=== PATIENT | female | born 1950 | race Caucasian/White ===

== ENCOUNTER → 2018-01-04 08:11 | Outpatient (CLI) | payer MEDICARE, OTHER, SELFPAY ==
[2018-01-04 08:55] LABS: Blood Urea Nitrogen 11 mg/dL (7-18); Estimated Glomerular Filt Rate 100 ml/min (>60); GFR (African American) 121 ML/MIN (>60)
--- NOTE | 2018-01-04 09:03 | CT_ITS ---
CT chest w con HISTORY: Left-sided abdominal pain. Also chest pain.. BP Pressure goes up with pain ITS.REASON: CHEST PAIN,PRECORDIAL PAIN ORDERING PHYSICIAN: Tigist Guardado PATIENT AGE: 67 years COMPARISON: None Technique: Axial images obtained. Sagittal and coronal reformatted images are also generated and reviewed. All CT scans at the facility use one or more dose reduction, viz: automated exposure control, ma/kV adjustment per patient size (including targeted exams where dose is matched to indication, i.e. head), or iterative reconstruction technique. FINDINGS: . The lungs appear clear with nothing definitely acute. No focal infiltrate.. Only Subtle coarsening of markings with perhaps some very subtle early emphysematous changes.... Central airways unremarkable. No pleural effusion nor or pleural lesions. Minimal linear scarring at the anterior aspect of lingula. The there is also some scant scarring anteriorly at the RML . No significant appearing lung nodules. Initially question low-density 6 mm lung nodule on axial image 45 however this is is flat and very thin on associated coronal slice 56 and sagittal 63. Not of concern in Most likely due to scarring. Follow-up in one year adequate here. Not felt to be of significance HEART: Borderline cardiomegaly. Perhaps Slightly generous appearing left atria and left ventricle minimal coronary artery calcification most evident LAD... No significant pericardial effusion. MEDIASTINAL AND HILAR STRUCTURES: No mediastinal or hilar mass evident.. Hilar regions appear normal. Normal caliber pulmonary arteries right and left vaishnavi.. This study was not designed for pulmonary artery evaluation but there is fairly good opacification throughout the pulmonary arteries with no evident central central pulmonary embolism. AORTA: No acute finding. No thoracic aortic aneurysm or dissection evident. Only Minimal after study plaque descending aorta BONY STRUCTURES: No acute bony abnormalities apparent early degenerative disc space narrowing mid T-spine with anterior marginal osteophytes. Likely small disc bulge/protrusion to the right and T10-11. There is also mild diffuse hard disc bulge posteriorly at L1/2.q LYMPH NODES: . Is only note that there is a retrocrural node measuring up to 7 mm manner axial slice 61 up to 12 mm length sagittal 43/ coronal image 39., Question possibly another smaller 7 mm retrocrural node axial slice 69... These appear to be fairly stable features were compared to 2014 CT. Thus follow-up in one year adequate These are slightly enlarged by criteria thus would benefit from follow-up as well. Cannot totally exclude branch of azygos accounting for this appearance reviewing all coronal images.. IMPRESSION: No acute findings in the chest. Lungs clear with minor chronic changes . No significant lung nodules or masses. A very tiny flat density atLLL most likely due to scarring. Not of concern; follow-up in one year adequate No significant mediastinal or hilar adenopathy. Slightly prominent retrocrural nodes-but no significant change since 2013. Largest measuring 7 mm diameter x 12 mm length. These are mildly enlarged based on criteria for stability is reassuring.. Follow up one year adequate Heart upper normal in size. Upper normal left atria and ventricle. Minimal coronary calcification LAD
--- NOTE | 2018-01-04 09:03 | CT_ITS ---
CT abdomen w con INDICATION: Left-sided abdominal pain upper abdominal pain 2 weeks. Hypertension with this pain.ITS.REASON: ABD PAIN ORDERING PHYSICIAN: Tigist Guardado PATIENT AGE: 67 years COMPARISON: CT abdomen with contrast 01/03/2014 . TECHNIQUE: 75 cc [id number] contrast utilized. Axial images obtained the abdomen and continuing down to the upper most pelvis. Axial Sagittal and coronal reformats on CT workstation. All CT scans at the facility use one or more dose reduction, viz: automated exposure control, ma/kV adjustment per patient size (including targeted exams where dose is matched to indication, i.e. head), or iterative reconstruction technique. FINDINGS: Lung bases are clear. Nothing acute. Minimal linear scarring anterior lingula. BorderlineCardiomegaly. Mitral annulus calcification Abdomen only imaging. Pelvis not requested thus not imaged.. : . Liver & spleen unremarkable. Gallbladder has been surgically removed. No intrahepatic biliary ductal dilatation. Common duct is slightly generous towards head pancreas -up to 9 mm diameter. This feature nicely seen on coronal image 28, 27 but likely compatible with prior underlying anatomy as well as postcholecystectomy. No calculi nor obstruction lesions. Pancreas. No mass lesion. . pancreatic duct again noted to be mildly dilated throughout, from the head and tail of pancreas. Duct Measures Up to 5 mm mm diameter duct at head & body of pancreas.. (axial image 33, coronal image 23). This was noted to thousand 14 CT and has similar appearance today no significant change since prior study. No obstructing lesion or calculi at the head of the pancreas evident. No obvious ampullary abnormality. No inflammatory changes of pancreas. No mass lesion. . Aorta no aneurysm. Atherosclerotic calcification. No significant retroperitoneal nor mesenteric adenopathy. Scattered small retroperitoneal nodes similar to previous study. Small fat-containing umbilical hernia Kidneys show normal enhancement. No calculi. No obstruction. GI TRACT Imaging extends down to the upper pelvis. Does not include the appendix or terminal ileum on the CT abdomen study. There is generous stool at the right and transverse colon on as well as moderate stool the proximal descending colon. There are diverticuli at the proximal descending colon. No definitive acute diverticulitis. No thickened diverticuli. No definitive pericolic stranding concern.. Today's imaging extends down to the proximal most sigmoid colon. . Osseous: no osseous lesions... Early degenerative changes spine. Degenerative facet changes lower L-spine. Tellez Mild 4 mm anterior degenerative listhesis L4 on L5... Narrowing L5/S1 disc space IMPRESSION------ 1. No acute findings abdomen pelvis. . 2. Diverticulosis throughout the descending colon extending to the splenic flexure but no acute diverticulitis Increased stool is seen throughout the right,, transverse colon & and through splenic flexure. Appearance suggesting mild constipation. 3. Again seen a diffuse mildly dilated pancreatic duct. This appears similar to 2014. No associated findings. No pancreatic mass nor lesion nor calcification; region of ampulla unremarkable. Would suggest correlation with amylase & lipase however. 4. Interval cholecystectomy since 2014. Slightly generous common duct compatible with postcholecystectomy change, & also reflects underlying generous common duct seen on previous study
== END ==
PROVIDERS: Family Provider Nurse Practitioner Family; PCP Nurse Practitioner Family; Visit Provider Nurse Practitioner Family
DX: R10.84 Generalized abdominal pain (principal); R07.2 Precordial pain
CPT/HCPCS: 36415; 71260; 74160; 82565; 84520; Q9967

== ENCOUNTER → 2018-01-18 13:53 | Outpatient (CLI) | payer MEDICARE, OTHER, SELFPAY ==
--- NOTE | 2018-01-18 14:11 | CA_ITS ---
PROCEDURE: 2-D M-mode and color Doppler study INDICATIONS FOR THE TEST: Chest pain COPD Heart Murmur Tobacco Smoking+ Palpitations Fatigue Syncope Edema Hypertension+Diabetes Mellitus Rheumatic Fever SOB REYES Obesity Hyperlipidemia Family History HD Additional History PATIENT INFORMATION HEIGHT: 66 WEIGHT:190 GENDER: Female B/P:140/88 2-D/M-MODE INTERPRETATION: 2-D MEASUREMENTS OBSERVED VALUES IN CMS Right Ventricular Dimension (RVDd) 2.7 Interventricular Septum (Thickness)(IVsd) 1.8 Left Ventricular Internal Dimensions(LVIDd) 5.0 Left Ventricular Posterior Wall (Thickness)(LVPWd) 0.6 Aortic Root 3.2 Aortic Cusp Separation 1.8 Left Atrial Dimensions (LAD) 3.7 2D 1. Left atrium is mildly enlarged, left ventricle is normal size, mild concentric left ventricular hypertrophy, visually estimated ejection fraction 55% with no regional wall motion abnormality. 2. The right atrium and right ventricle are normal size and contractility. 3. The aortic valve is minimally thickened and fibrosed. 4. The mitral and tricuspid valve leaflets are minimally thickened. 5. The pulmonic valve is poorly visualized. 6. No significant pericardial effusion noted. DOPPLER INTERROGATION: Doppler interrogation of the aortic, mitral and tricuspid valvular presence of mild mitral and tricuspid regurgitation, tricuspid regurgitation jet velocity is insufficient for calculation of the systolic pressure, grade 1 diastolic dysfunction seen with tissue Doppler evidence of raised left atrial pressure. CONCLUSION: 1. Mildly enlarged left atrium, normal left ventricular size, mild concentric left ventricular hypertrophy, visually estimated ejection fraction 55% with no regional wall motion abnormality, grade 1 diastolic dysfunction seen with tissue Doppler evidence of raised left atrial pressure. 2. Mild mitral and tricuspid regurgitation 3. No significant pericardial effusion noted.
== END ==
PROVIDERS: Family Provider Nurse Practitioner Family; PCP Nurse Practitioner Family; Visit Provider Nurse Practitioner Family
DX: I51.7 Cardiomegaly (principal)
CPT/HCPCS: 93306

== ENCOUNTER 2021-03-26 09:37 | Emergency (ER) | payer MEDICARE, OTHER, SELFPAY ==
[2021-03-26 09:47] VITALS: BP 134/74; PULSE 88; RESP 16; TEMP 36.6; O2SAT 98; BMI 29.0
--- NOTE | 2021-03-26 11:18 | XR_ITS ---
PROCEDURE: XR HAND LT MIN 3V CLINICAL INDICATION: fall COMPARISON: No exams were available for comparison FINDINGS: A comminuted fracture involves the proximal articular surface the middle 4th phalanx. Longitudinal component also extends into the proximal and mid shaft of the middle 4th phalanx. There is ulnar subluxation of the middle 4th phalanx by 3 mm. Osteoarthritic changes are present at the scapho trapezium and 1st carpal metacarpal joint. IMPRESSION: Comminuted fracture of the middle 4th phalanx with mild ulnar subluxation Dictated by: Jonah Luz MD 03/26/2021 11:46 Jonah Luz MD in [place] 03/26/2021 11:46
[2021-03-26 11:21] VITALS: BP 151/86; PULSE 87; RESP 19; TEMP 36.9; O2SAT 94; BMI 29.0
--- NOTE | 2021-03-26 11:54 | HMH.EDUTC ---
[facility] [place] Disposition Clinical Impression: Subluxation of right ring finger Qualifiers: Encounter type: initial encounter Qualified Code(s): S63.204A - Unspecified subluxation of right ring finger, initial encounter Fall Qualifiers: Encounter type: initial encounter Qualified Code(s): W19.XXXA - Unspecified fall, initial encounter Disposition: Left Against Medical Advice Condition on Discharge: Good Instructions: Finger Fracture, Finger Dislocation Additional Instructions: You need to be seen by a hand specialist. We are setting up the appointment with the [facility]. Take ibuprofen for pain. Follow up with your primary care provider. GO TO THE ER FOR ANY WORSENING SYMPTOMS OR CONCERNS Referrals: Meredith Diane [Primary Care Provider] - [facility] [Other] Medical Decision Making - Medical Records Medical records reviewed: No: I reviewed the patient's medical records. - Rakan Inquiry Pt receiving controlled substance: No Vital Signs: 03/26/21 09:47 03/26/21 11:21 Temperature 98 F 98.4 F Temperature Source Oral Oral Pulse Rate [Radial] 88 87 Respiratory Rate 16 19 Blood Pressure [Right Arm] 134/74 151/86 H Blood Pressure Mean [Right Arm] 94 107 Blood Pressure Position [Right Arm] Sitting 02 Sat by Pulse Oximetry 98 94 L Oxygen Delivery Method Room Air Orders (Tests/Meds): ED MEDICATIONS Discontinued Medications Generic Name Dose Route Start Last Admin Trade Name Nicolasa PRN Reason Stop Dose Admin Ibuprofen 600 mg 03/26/21 12:30 03/26/21 12:31 Ibuprofen 400 Mg Tablet PO 03/26/21 12:31 600 mg ONCE ONE Administration Medical Decision Narrative: I notified Dr. Zhu's office of this patient. Dr. Zhu's nurse called back and stated that Dr. Zhu states that she needs to be seen by a hand specialist because the affected finger is subluxated. In the process of getting the referral and transfer set up for her to go to the [facility] to be seen by a hand specialist, the patient walked out of the unit and did not come back. I have called her cell phone and left messages for her to call us back regarding her finger injury. I also called her home phone, but there was no answer there. [facility] [place] HPI - General Stated complaint: AO fall 03/26 finger injury Time Seen by Provider: 03/26/21 11:54 Mode of Arrival: Ambulatory Source of Information: Patient Limitations: No Limitations Description of Symptoms (Recalled from Triage Doc. by RN): pt fell this am chasing her dog. pt c/o L ring finger pain. pt states she is unable to bend her finger at the PIP joint. HEENT Symptoms (Recalled from RN notes): No Resp Symptoms (Recalled from RN notes): No Skin Symptoms (Recalled from RN notes): No MS Symptoms (Recalled from RN notes): Yes (L ring finger pain) Functional Status (Recalled from RN notes): wnl - History of Present Illness Provider Complaint: She states that that she fell this morning while chasing her dog to keep it out of the road. She slipped on wet grass and came down on her right hand. She is having pain and swelling of her right ring finger. - Related Data Home Medications Medication Instructions Recorded Confirmed Amitriptyline HCl [Elavil 50mg 50 mg PO DAILY 04/21/19 02/20/20 tablet] Atorvastatin Calcium [Atorvastatin 20 mg PO HS 04/21/19 02/20/20 20mg Tab] carvediloL [Carvedilol 12.5mg Tab] 12.5 mg PO BID 04/21/19 02/20/20 amlodipine 5 mg tablet 5 mg PO DAILY 11/14/19 02/20/20 metformin 1,000 mg tablet 500 mg PO DAILY tab 11/14/19 02/20/20 Previous Rx's Medication Instructions Recorded ciclopirox 8 % topical solution 1 applic TOPICAL DAILY 90 Days 02/20/20 #6.6 ml Allergies Allergy/AdvReac Type Severity Reaction Status Date / Time No Known Allergies Allergy Verified 02/20/20 09:41 - Worker's Comp Is this a Worker's Comp case?: No [facility] History - Hepatitis A Screen Drug use history?: No High risk s
--- NOTE | 2021-03-26 15:24 | PC.NURSE ---
pt was updated at 1245 that we were waiting to here back from Dr. Zhu's office but she would know as soon as we did. at 1315 I checked back in with the pt. pt was getting anxious to leave but stated she understood it was a process. Eb PATEL spoke with Dr. Zhu who advised a consult with [facility]. [facility] was called by myself at 1330 to make an appointment for the pt to follow up. the phone call was approximately 30 minutes. towards the end of the call I went in to verify the pts phone number and she was gone from the room. I attempted to call the pts cell phone at this time (~1415) with no answer. 1446 Eb attempted to call the pts house phone and cell phone and left a voicemail explaining the importance of calling us back. still no word from the pt.
[2021-03-26 15:32] VITALS: BP 0/0; PULSE 0; RESP 0; TEMP -17.7; TEMP 0
--- NOTE | 2021-03-26 15:35 | PC.NURSE ---
follow up was made with [facility] on 04/03 at 0830. will attempt to notify the pt again throughout the day.
== END 2021-03-26 15:36 | disposition left against medical advice (07) ==
PROVIDERS: Emergency Provider Nurse Practitioner Family; PCP Nurse Practitioner Family
DX: S63.204A Unspecified subluxation of right ring finger, initial encounter (principal); W01.0XXA Fall on same level from slipping, tripping and stumbling without subsequent striking against object, initial encounter; F17.210 Nicotine dependence, cigarettes, uncomplicated; E78.5 Hyperlipidemia, unspecified; E11.9 Type 2 diabetes mellitus without complications; I10 Essential (primary) hypertension
CPT/HCPCS: G0463; 73130; 99202

== ENCOUNTER 2023-06-24 17:59 | Outpatient (CLI) | payer MEDICARE, OTHER, SELFPAY ==
[2023-06-24 17:55] LABS: Microscopic, Urine URINE MICROSCOPIC (MICROSCOPIC)
[2023-06-24 18:16] LABS: Alanine Aminotransferase 11 U/L (12-78); Albumin Level 3.9 g/dl (3.5-5.0); Albumin/Globulin Ratio 1.2 (1.1-1.8); Alkaline Phosphatase 113 U/L (38-126); Anion Gap 13.1 mEq/L (5-15); Aspartate Amino Transferase 19 U/L (14-36); Basophils # 0.1 K/mm3 (0-0.2); Basophils % 0.7 % (0.1-2.0); Bilirubin,Total 0.3 mg/dl (0.2-1.3); Blood Urea Nitrogen 15 mg/dl (7-17); Calcium 9.5 mg/dl (8.4-10.2); Carbon Dioxide 29 mmol/L (22.0-30.0); Chloride 101 mmol/L (98-107); Chol/HDL Ratio 3.6 (1-3.5); Cholesterol 144 mg/dl (140-200); Eosinophils # 0.1 K/mm3 (0.0-0.4); Eosinophils % 1.1 % (0.1-12.0); Estimated Glomerular Filt Rate 98 ml/min (>60); GFR (African American) 119 ML/MIN (>60); Globulin 3.3 g/dL (1.3-3.2); Glucose 107 mg/dl (74-100); HDL Cholesterol 40 mg/dl (40-60); Hematocrit 45.4 % (37.0-47.0); Hemoglobin 14.3 g/dL (12.2-16.2); Lymphocytes # 2.7 K/mm3 (0.7-4.5); Lymphocytes % 30.2 % (10-50); Mean Corpuscular HGB Conc 31.4 g/dL (31.8-35.4); Mean Corpuscular Hemoglobin 29.4 pg (27.0-31.2); Mean Corpuscular Volume 93.4 fl (81-99); Mean Platelet Volume 10.8 fl (7.4-10.4); Monocytes # 0.5 K/mm3 (0.1-1.0); Monocytes % 5.5 % (1.7-9.3); Neutrophils # 5.6 K/mm3 (1.8-7.8); Neutrophils % 62.5 % (37.0-80.0); Platelet Count 281 K/mm3 (142-424); Potassium 4.1 mmoL/L (3.5-5.1); Red Blood Count 4.86 M/mm3 (4.20-5.40); Red Cell Distribution Width 14.4 % (11.5-17.5); Sodium 139 mmol/L (136-145); Total Protein,Serum 7.2 g/dl (6.3-8.2); Triglycerides 87 mg/dl (30-150); VLDL Cholesterol 17 mg/dL (0-40); White Blood Count 8.9 K/mm3 (4.8-10.8)
[2023-06-24 18:22] LABS: Appearance,Urine CLEAR (Clear); Bilirubin,Urine Negative (Negative); Blood, Urine Negative (Negative); Color,Urine YELLOW (Yellow); Glucose,Urine (UA) Negative (Negative); Ketones,Urine Negative (Negative); Leukocyte Esterase,Urine 2+ (Negative); Nitrate,Urine Negative (Negative); Protein,Urine Negative (Negative); Specific Gravity, Urine 1.015 (1.005-1.030); Urobilinogen,Urine 0.2 EU/dl (0.2)
[2023-06-24 18:28] LABS: Direct LDL Cholesterol 69.42 mg/dL (100-129)
[2023-06-24 18:30] LABS: Free T4 (Free Thyroxine) 1.28 ng/dl (0.78-2.19)
[2023-06-24 18:33] LABS: 25-OH Vitamin D, Total 53.9 ng/mL (30-100)
[2023-06-24 18:43] LABS: Bacteria,Urine Trace /lpf
[2023-06-24 18:48] LABS: Thyroid Stimulating Hormone 1.28 uIU/mL (0.465-4.68)
[2023-06-24 19:07] LABS: Vitamin B12 266 pg/mL (239-931)
[2023-06-24 20:08] LABS: Hemoglobin A1C 7.3 % (4.0-6.0)
== END 2023-06-24 23:59 ==
LOC: LAB.DROPOF 17:59
PROVIDERS: PCP Nurse Practitioner Family; Visit Provider Nurse Practitioner Family
DX: R53.83 Other fatigue (principal); E55.9 Vitamin D deficiency, unspecified; I10 Essential (primary) hypertension; R39.9 Unspecified symptoms and signs involving the genitourinary system; E78.5 Hyperlipidemia, unspecified; E11.9 Type 2 diabetes mellitus without complications; Z79.84 Long term (current) use of oral hypoglycemic drugs
CPT/HCPCS: 80053; 80061; 81001; 82306; 82607; 83036; 84439; 84443; 85025; 87086

== ENCOUNTER 2023-11-04 08:40 | Outpatient (CLI) | payer MEDICARE, OTHER, SELFPAY ==
--- NOTE | 2023-11-04 08:41 | XR_ITS ---
FINAL REPORT TECHNIQUE: Bone densitometry calculations of the lumbar spine and left hip were obtained. CLINICAL HISTORY: screening osteoporosis COMPARISON: None FINDINGS: Using L1-4, the bone mineral density of the spine is 1.116 g/cm2, corresponding to T-score of 0.6. Using the left hip, the bone mineral density of the femoral neck is 0.637 g/cm2, corresponding to a T-score of -1.8. NOTE: T-score: Standard deviation compared with peak bone mass of young adult mean. *Following the recommendations of the International Society of Bone densitometry, classification of hip BMD is based on the lower of two T-scores; total hip or femoral neck. IMPRESSION: Diminished bone mineral density of the bilateral hips consistent with osteopenia. Normal bone mineral density of the lumbar spine. Reviewed, Interpreted and Dictated by Gabbie Ramirez MD Transcribed by Moira Spaulding Authenticated and [facility]
--- NOTE | 2023-11-04 08:41 | CT_ITS ---
FINAL REPORT TECHNIQUE: Axial images were obtained from the lung apex to the mid abdomen by computed tomography. This study was performed with techniques to keep radiation doses as low as reasonably achievable (ALARA). Individualized dose reduction techniques using automated exposure control or adjustment of mA and/or kV according to the patient's size were employed. CLINICAL HISTORY: lung cancer screening SMOKER, 1 1/2 PKS PER DAY X 20 YRS 95.1 dlp mas 26.3 kvp 120 ctdi (vol)2.7 mGy COMPARISON: 01/04/2018 FINDINGS: CHEST CT LOW DOSE CTDI vol (mGy): 2.7 DLP (mGy-cm): 95.1 There is no axillary adenopathy. There is no hilar or mediastinal adenopathy. The heart is normal in size. There is no pericardial or pleural effusion. There is a lobular nodule in the left lower lobe measuring 6 mm, slightly denser than prior although stable in size. Finding is best seen on image 333. Note is made of emphysema. Limited images of the upper abdomen are unremarkable. IMPRESSION: Left lower lobe nodule, slightly more prominent due to increased density, favor benign or slice variation. Lung RADS category 3. Recommend 6 month follow-up low-dose chest CT. Reviewed, Interpreted and Dictated by Gabbie Ramirez MD Transcribed by Ayana Knox Authenticated and [facility]
--- NOTE | 2023-11-04 08:41 | MM_ITS ---
PROCEDURE INFORMATION: Exam: MG Bilateral Screening 3D Mammography Exam date and time: 11/04/2023 8:52 AM Age: 72 years old Clinical indication: Screening mammogram TECHNIQUE: Imaging protocol: Bilateral Screening tomosynthesis and 2D mammography including computer-aided detection (CAD) when performed. COMPARISON: 1. MG DMSB DIGITAL MAMM-SCREEN BILATERAL 11/12/2010 3:40 PM 2. MG DIGMAMMS MAMMOGRAM SCREEN-MIXING TECHNICIAN N/C 04/27/2008 3:55 PM 3. MG DIGMAMMS MAMMOGRAM SCREEN-MIXING TECHNICIAN N/C 01/18/2002 4:33 PM FINDINGS: MAMMOGRAPHY: Breast composition: There are scattered areas of fibroglandular density. Mass: None. Architectural distortion: No new or suspicious architectural distortion. Calcifications: No new or suspicious calcifications are present Asymmetric density: No new or suspicious asymmetric density is present Skin thickening: None. Axillary adenopathy: None. IMPRESSION: No mammographic evidence of malignancy. Recommend annual screening mammography unless otherwise clinically indicated. ASSESSMENT: BI-RADS category 1: Negative.
== END 2023-11-04 23:59 | disposition home or self-care (01) ==
PROVIDERS: PCP Nurse Practitioner Family; Visit Provider Nurse Practitioner Family
DX: Z78.0 Asymptomatic menopausal state (principal); Z13.820 Encounter for screening for osteoporosis; Z12.31 Encounter for screening mammogram for malignant neoplasm of breast; F17.210 Nicotine dependence, cigarettes, uncomplicated
CPT/HCPCS: 71271; 77063; 77067; 77080

== ENCOUNTER 2024-05-12 13:58 | Outpatient (CLI) | payer MEDICARE, OTHER, SELFPAY ==
--- NOTE | 2024-05-12 14:26 | CT_ITS ---
FINAL REPORT TECHNIQUE: Routine axial images were obtained from the lung apices to below the diaphragm following IV contrast administration. Individualized dose reduction techniques using automated exposure control or adjustment of the mA and/or kV according to the patient size were employed. CLINICAL HISTORY: Nodule in the left lower lobe measuring 6 mm COMPARISON: LDCT 11/04/2023 FINDINGS: CT CHEST WITH CONTRAST: CT examination of the chest is compared to a prior chest CT dated 11/04/2023, that showed a left lower lobe nodule, slightly denser than seen on the prior exam. The left lower lobe nodule is again seen on image #47 of series 2, and measures 7 mm. On coronal imaging this appears to be predominantly linear, best seen on image #56 of series 601. Favor postinflammatory etiology, would follow-up with 6-month LDCT for further evaluation. No new nodules or masses are identified. No hilar or mediastinal adenopathy is noted. No pleural or pericardial fluid is present. The upper abdomen is unremarkable in appearance. IMPRESSION: Stable appearing left lower lobe nodule, favor postinflammatory etiology as described, would follow-up with 6-month LDCT for further evaluation. Reviewed, Interpreted and Dictated by Julien Smith MD Transcribed by Moira Spaulding Authenticated and [facility]
[2024-05-12 14:40] LABS: Blood Urea Nitrogen 14 mg/dl (7-17); Estimated Glomerular Filt Rate 98 ml/min (>60); GFR (African American) 119 ML/MIN (>60)
[2024-05-12] MEDS: SODIUM CHLORIDE 0.9% 10ML SYR (RAD ONLY) 10 ML IV (15:17)
[2024-05-12] MEDS: IOPAMIDOL-370 (76%);100ML BOTTLE 75 ML IV (15:18)
== END 2024-05-12 23:59 | disposition home or self-care (01) ==
LOC: RAD 14:00
PROVIDERS: PCP Nurse Practitioner Family; Visit Provider Nurse Practitioner Family
DX: R91.1 Solitary pulmonary nodule (principal); R53.83 Other fatigue
CPT/HCPCS: 36415; 71260; 82565; 84520; Q9967

== ENCOUNTER 2024-11-14 09:44 | Outpatient (CLI) | payer MEDICARE, OTHER, SELFPAY ==
--- OUTSIDE RECORDS SUMMARY | 2024-11-14 09:54 | XMS_ITS | Clinical Summary ---
Author Organization [facility] Address [address] [place] [address] Care Team Providers Care Medicare Nurse Name Role Phone Noemí Mosley Primary Care Provider + [phone] Allergies No known active allergies Medications albuterol sulfate HFA 108 (90 Base) MCG/ACT inhaler Inhale 2 puffs every 4 hours by inhalation route as needed. Active amitriptyline (ELAVIL) 50 MG tablet Take 1 tablet by mouth every night at bedtime. 3 Active amLODIPine (NORVASC) 5 MG tablet Take 1 tablet by mouth Daily. 3 Active atorvastatin (LIPITOR) 40 MG tablet Take 1 tablet by mouth Daily. Active carvedilol (COREG) 12.5 MG tablet Take 1 tablet by mouth 2 (Two) Times a Day. 3 Active Diclofenac Sodium (VOLTAREN) 1 % gel gel APPLY 2 GRAMS TO THE AFFECTED AREA(S) BY TOPICAL ROUTE 4 TIMES PER DAY 3 Active metFORMIN (GLUCOPHAGE) 1000 MG tablet Take 1 tablet by mouth Daily With Breakfast & Dinner. 3 Active Active Problems Problem Noted Date Diagnosed Date Abnormal nuclear stress test 01/13/2023 Assessment & Plan (01/13/2023 10:25 AM EDT): Nuclear stress test from 01/05/2023 revealed no obvious ischemia, but transient ischemic dilation ratio is elevated suggesting the possibility of balanced ischemia. Patient denies chest pain at this time. She feels her shortness of breath has improved and is stable. We discussed further cardiac testing including a left heart cath and coronary CTA. Patient would like to hold off on any further testing at this time due to improvement in symptoms. She will let me know if symptoms worsen and we will proceed with further testing. MICHELLE (obstructive sleep apnea) 12/23/2022 Assessment & Plan (12/23/2022 10:20 AM EDT): She has a history of MICHELLE that was diagnosed approximately 15 years ago and previously used CPAP therapy. She lost 85 pounds and stopped using the CPAP approximately 9 years ago. She denies snoring, or excessive daytime sleepiness or fatigue. She sometimes feels tired throughout the day but feels like this is because she only sleeps approximately 4 hours every night. - Discussed repeating sleep study to determine if MICHELLE is still present. Patient would like to think about this and let me know at follow-up visit. HTN (hypertension) 12/23/2022 Assessment & Plan (01/13/2023 10:23 AM EDT): Hypertension is well controlled . Continue current treatment regimen. Dietary sodium restriction. Blood pressure will be reassessed at the next regular appointment. Assessment & Plan (12/23/2022 10:21 AM EDT): Hypertension is well controlled . Continue current treatment regimen. Dietary sodium restriction. Blood pressure will be reassessed at the next regular appointment. Hyperlipidemia 12/23/2022 Assessment & Plan (12/23/2022 10:22 AM EDT): Lipid panel from 12/05/2022 reviewed, total cholesterol 128, HDL 55, triglycerides 79, LDL 57. - Continue atorvastatin 40 mg once daily. Localized swelling of both lower extremities 03/2023 Assessment & Plan (01/13/2023 10:26 AM EDT): Patient is notices significant improvement in lower extremity edema since last office visit. Echocardiogram revealed an LVEF of 58%. Grade 1 diastolic dysfunction and mild mitral valve regurgitation. - Encourage patient to continue elevating legs is much as possible. Assessment & Plan (12/23/2022 10:21 AM EDT): Most likely dependent edema. - Encouraged patient to elevate legs as much as possible. - Echocardiogram to rule out cardiac etiology Shortness of breath 12/23/2022 Assessment & Plan (01/13/2023 10:25 AM EDT): Likely multifactorial. Currently stable -Encourage smoking cessation. Assessment & Plan (12/23/2022 10:19 AM EDT): Likely multifactorial, patient is a smoker and also has multiple cardiac risk factors (hypertension, hyperlipidemia, family history of CAD). - Nuclear stress test and echocardiogram for further evaluation. Family History Medical History Relation Name Comments Heart disease Father Breast cancer Sister Relation Name Status Comments Father Sister Social History Tobacco Use Types Packs/Day Years Used Date Smoking Tobacco: Every Day Cigarettes 1 20 Passive Smoke Exposure: Current Smokeless Tobacco: Never Tobacco Cessation:Ready to Q uit: Not Asked; Counseling Given: Not Answered Alcohol Use Standard Drinks/Week Comments Not Currently 0 (1 standard drink = 0.6 oz pur e alcohol) Abuse Screen Answer Date Recorded Unsafe at Home or Work/School Not on file Feels Threatened by Someone? Not on file 12/2022 Does Anyone Keep You from Co ntacting Others or Doint Things Outside the Home? Not on file 01/19/2023 Physical Sign of Abuse Present Not on file 1 Housing Stability Answer Date Recorded Current Living Arrangements Not on file 12/2022 Potentially Unsafe Housing Conditions Not on rock e 01/19/2023 Family and Community Support Answer Samir e Recorded Help with Day-to-Day Activities Not on file 01/19/2023 Lonely or Isolated Not on file 01/19/2023 Employment Answer Date Recorded Do you want help finding or keeping work or a tomasa b? Not on file 01/19/2023 Disabilities Answer Date Recorded Concentrating, Remembering, or Making Decisions Difficulty Not on file 01/19/2023 Doing Errands Independently Difficulty Not on fi le 01/19/2023 Education Answer Date Recorded Help with school or training? Not on file Preferred Language Not on file 01/19/2023 Comments Unknown Sex and Gender Information Value Date Recorded Sex Assigned at Not on file Legal Sex Female 9:35 AM EDT Gender Identity Not on file Sexual Orientation Not on file Last Filed Vital Signs Vital Sign Reading Time Taken Comments Blood Pressure 133/81 01/13/2023 9:14 AM EDT Pulse 86 01/13/2023 9:14 AM EDT Temperature - - Respiratory Rate - - Oxygen Saturation 98% 01/13/2023 9:14 AM EDT Inhaled Oxygen Concentration - - Weight 80.7 kg (178 lb) 01/13/2023 9:14 AM EDT Height 167.6 cm (5' 6 ) 01/13/2023 9:14 AM EDT Body Mass Index 28.73 01/13/2023 9:14 AM EDT Plan of Treatment Health Maintenance Due Date Last Done Comments DXA SCAN 1950 LIPID PANEL 1950 Pneumococcal Vaccine 50+ (1 of 2 - PCV) 1969 TDAP/TD VACCINES (1 - Tdap) 1969 MAMMOGRAM 1990 COLOGUARD 11/09/1995 COLON CANCER SCREENING 5 YEA R SIGMOIDOSCOPY 11/09/1995 COLONOSCOPY 11/09/1995 COLORECTAL CANCER SCREENING 11/09/1995 CT COLONOGRAPHY 11/09/1995 FECAL OCCULT BLOOD TEST 11/09/1995 FIT Testing (1 year) 11/09/1995 ZOSTER VACCINE (1 of 2) 2000 ANNUAL WELLNESS VISIT 12/23/2022 HEPATITIS C SCREENING 12/23/2022 COVID-19 Vaccine ( season) 12/13/202304/2020, 06/14/2020 INFLUENZA VACCINE 01/11/2025 02/26/2021 Insurance MEDICARE A & B Member Subscriber Plan / Payer (Ef fective 2015-Present) Name:Ashley Mckeon Member ID:[id number] Relation to Subscriber:Self Name:Ashley Mckeon Subscriber ID:[id number] Payer ID:[id number] Group ID:Not on file Type:Not on file Address: [facility] [id number] [place] [address] Care Teams Medicare Nurse Relationship Specialty Start Date End Date Noemí Mosley [address] [place] [address] PCP - General Nurse Practitioner 12/10/22
--- NOTE | 2024-11-14 10:00 | CT_ITS ---
FINAL REPORT TECHNIQUE: Axial CT images of the chest were obtained without contrast. Low-dose protocol was utilized. Coronal and sagittal reformatted images were obtained and reviewed. This study was performed with techniques to keep radiation doses as low as reasonably achievable (ALARA). Individualized dose reduction techniques using automated exposure control or adjustment of mA and/or kV according to the patient's size were employed. CLINICAL HISTORY: Lung cancer screening. Smoker 1.5 ppd x 25 years COMPARISON: CT chest dated 05/12/2024 FINDINGS: CT CHEST WITHOUT, LOW DOSE SCREENING CTDl vol(mGy): 2.90 DLP (mGy-cm): 100.81 Current smoker 37.5 pack year history There is no axillary adenopathy. There is no hilar or mediastinal adenopathy. The heart size is normal. There is no pericardial or pleural effusion. There are moderate vascular calcifications of the aortic arch. There is dense calcification of the coronary arteries and mitral valve. On the lung window images, there is redemonstration of an irregular noncalcified nodule in the left lower lobe measuring 7.5 mm in greatest dimension. This is best seen on image 47 of series 4. This is basically stable and appears similar to the prior exam. No new nodules are identified Limited images of the upper abdomen are unremarkable. IMPRESSION: Stable lobular nodule left lower lobe. Lung RADS category 3. Recommend 6 month follow-up low-dose chest CT per Fleischner criteria to ensure stability. Reviewed, Interpreted and Dictated by Julien Smith MD Transcribed by Adelina Jones Authenticated and [facility]
== END 2024-11-14 23:59 | disposition home or self-care (01) ==
LOC: RAD 09:45
PROVIDERS: PCP Nurse Practitioner Family; Visit Provider Nurse Practitioner Family
DX: Z12.2 Encounter for screening for malignant neoplasm of respiratory organs (principal); R91.1 Solitary pulmonary nodule; I25.10 Atherosclerotic heart disease of native coronary artery without angina pectoris; I70.0 Atherosclerosis of aorta; J44.9 Chronic obstructive pulmonary disease, unspecified; F17.210 Nicotine dependence, cigarettes, uncomplicated
CPT/HCPCS: 71271